=== PATIENT | male | born 1990 | race Caucasian/White ===

== ENCOUNTER 2017-03-29 06:10 | Emergency (ER) | payer SELFPAY ==
[~2017-03-29] VITALS: Ht 175.3 cm; Wt 80.0 kg
[2017-03-29 10:10] VITALS: BP 108/64
== END 2017-03-29 10:33 | disposition home or self-care (01) ==
LOC: ED 10:27
DX: F10.120 Alcohol abuse with intoxication, uncomplicated (principal)
CPT/HCPCS: 99283